=== PATIENT | female | born 1940 | race Caucasian/White ===

== ENCOUNTER 2016-04-25 11:58 | Day surgery (SDC) | payer MEDICARE, OTHER ==
[2016-04-25] MEDS ORDERED: CYCLOPENTOLATE 1% OPHTH DROPS 2 ML OPTH ONE (12:32)
[2016-04-25] MEDS ORDERED: TROPICAMIDE 1% OPHTH 2 ML DROPS OPTH ONE (12:32)
[2016-04-25] MEDS ORDERED: KETOROLAC 0.45% OPHTH DROPS OPTH ONE (12:32)
[2016-04-25] MEDS ORDERED: LACTATED RINGERS 500 ML IV ONE (12:39)
[2016-04-25] MEDS ORDERED: EPINEPHrine 1 MG/ML AMP IO ONE (13:06)
[2016-04-25] MEDS ORDERED: BRIMONIDINE 0.2% OPHTH DROPS 5 ML OPTH ONE (13:06)
[2016-04-25] MEDS ORDERED: PROPARACAINE 0.5% OPHTH DROPS 15 ML OPTH ONE (13:06)
[2016-04-25] MEDS ORDERED: CHONDR SULF/HYALURONATE SYRINGE IO ONE (13:07)
[2016-04-25] MEDS ORDERED: BSS/LIDOCAINE/EPINEPHRINE 1 ML SYRINGE IO ONE (13:07)
[2016-04-25] MEDS ORDERED: levoFLOXacin 0.5% OPHTH DROPS 5 ML OPTH ONE (13:07)
[2016-04-25] MEDS ORDERED: TETRACAINE OPHTH DROPS 2 ML OPTH ONE (13:07)
[2016-04-25] MEDS ORDERED: MIDAZOLAM 2 MG/2 ML VIAL IVP ONE (13:11)
== END 2016-04-25 11:59 | disposition home or self-care (01) ==
PROC: 08RJ3JZ Replacement of Right Lens with Synthetic Substitute, Percutaneous Approach (ICD-10-PCS; principal; 2016-04-25 13:25)
DX: H26.9 Unspecified cataract (principal); R06.83 Snoring; E03.9 Hypothyroidism, unspecified; I48.91 Unspecified atrial fibrillation
CPT/HCPCS: 66984; V2632

== ENCOUNTER 2016-05-09 11:09 | Day surgery (SDC) | payer MEDICARE, OTHER ==
[2016-05-09] MEDS ORDERED: LACTATED RINGERS 500 ML IV ONE (11:27)
[2016-05-09] MEDS ORDERED: MIDAZOLAM 2 MG/2 ML VIAL IVP ONE (12:00)
[2016-05-09] MEDS ORDERED: EPINEPHrine 1 MG/ML AMP IO ONE (12:07)
[2016-05-09] MEDS ORDERED: BRIMONIDINE 0.2% OPHTH DROPS 5 ML OPTH ONE (12:07)
[2016-05-09] MEDS ORDERED: CHONDR SULF/HYALURONATE SYRINGE IO ONE (12:07)
[2016-05-09] MEDS ORDERED: levoFLOXacin 0.5% OPHTH DROPS 5 ML OPTH ONE (12:07)
[2016-05-09] MEDS ORDERED: TETRACAINE OPHTH DROPS 2 ML OPTH ONE (12:07)
[2016-05-09] MEDS ORDERED: PROPARACAINE 0.5% OPHTH DROPS 15 ML OPTH ONE (12:07)
[2016-05-09] MEDS ORDERED: BSS/LIDOCAINE/EPINEPHRINE 1 ML SYRINGE IO ONE (12:08)
== END 2016-05-09 11:10 | disposition home or self-care (01) ==
PROC: 08RK3JZ Replacement of Left Lens with Synthetic Substitute, Percutaneous Approach (ICD-10-PCS; principal; 2016-05-09 12:15)
DX: H25.12 Age-related nuclear cataract, left eye (principal); I48.91 Unspecified atrial fibrillation
CPT/HCPCS: 66984; V2632

== ENCOUNTER 2016-06-13 09:34 | Outpatient (CLI) | payer MEDICARE, OTHER | END 2016-06-13 09:35 | disposition home or self-care (01) | DX: E03.9 Hypothyroidism, unspecified (principal); R53.83 Other fatigue; E55.9 Vitamin D deficiency, unspecified ==

== ENCOUNTER 2017-12-10 10:13 | Outpatient (CLI) | payer MEDICARE, OTHER ==
[2017-12-10 18:47] LABS: THYROID STIMULATING HORMONE 0.54 uIU/mL (0.34-5.60)
[2017-12-10 18:49] LABS: FREE T4 (FREE THYROXINE) 0.45 ng/dL (0.58-1.64)
[2017-12-10 18:52] LABS: TOTAL T3 1.66 ng/mL (0.87-1.78)
[2017-12-11 07:36] LABS: PROGESTERONE 0.6 ng/mL
== END 2017-12-10 10:14 | disposition home or self-care (01) ==
LOC: LAB.F 10:13
PROVIDERS: ATTEND Family Medicine
DX: E03.9 Hypothyroidism, unspecified (principal)
CPT/HCPCS: 36415; 82626; 82670; 84144; 84439; 84443; 84480; 84481; 84482

== ENCOUNTER 2018-10-07 11:36 | Outpatient (CLI) | payer MEDICARE, OTHER ==
--- NOTE | 2018-10-07 14:16 | XRAY Report ---
Reason: WT LOSS, FATIGUE Procedure Date: 10/07/2018 Accession Number: [id number] / [id number] Procedure: XRS - Chest 2 View X-Ray CPT Code: 79090 FULL RESULT: EXAM: CHEST RADIOGRAPHY EXAM DATE: 10/07/2018 11:49 AM. CLINICAL HISTORY: Weight loss, fatigue. COMPARISON: None. TECHNIQUE: 2 views. FINDINGS: Lungs/Pleura: There is mild bronchial wall calcification, a frequent finding in this population. Apparent peripherally dense nodules are felt to represent calcifications of intermediate-sized bronchi en face. No focal opacities evident. No pleural effusion. No pneumothorax. Normal volumes. Mediastinum: Heart and mediastinal contours are nonenlarged, mildly calcified aortic arch. Other: None. IMPRESSION: No pulmonary mass is detected. For workup of occult malignancy, consider CT. [facility]
== END 2018-10-07 11:37 | disposition home or self-care (01) ==
LOC: DI.S 11:36
PROVIDERS: ATTEND Family Medicine
DX: R63.4 Abnormal weight loss (principal); R53.83 Other fatigue; M62.84 Sarcopenia; E03.9 Hypothyroidism, unspecified; I48.91 Unspecified atrial fibrillation; L74.513 Primary focal hyperhidrosis, soles
CPT/HCPCS: 71046

== ENCOUNTER 2018-10-16 12:56 | Outpatient (CLI) | payer MEDICARE, OTHER ==
[2018-10-16 18:03] LABS: ALBUMIN 4.1 g/dL (3.2-5.5); ALBUMIN/GLOBULIN RATIO 1.4 (1.0-2.2); BILIRUBIN,TOTAL 1.1 mg/dL (0.2-1.0); CALCIUM 9.1 mg/dL (8.5-10.3); CREATININE 0.6 mg/dL (0.4-1.0)
== END 2018-10-16 12:57 | disposition home or self-care (01) ==
LOC: LAB.S 12:56
PROVIDERS: ATTEND Family Medicine
DX: E87.5 Hyperkalemia (principal); R53.82 Chronic fatigue, unspecified
CPT/HCPCS: 36415; 80053

== ENCOUNTER 2019-01-20 13:10 | Outpatient (CLI) | payer MEDICARE, OTHER ==
[2019-01-20 18:53] LABS: FREE T4 (FREE THYROXINE) 1.02 ng/dL (0.58-1.64); THYROID STIMULATING HORMONE 1.91 uIU/mL (0.34-5.60); TOTAL T3 0.69 ng/mL (0.87-1.78)
== END 2019-01-20 13:11 | disposition home or self-care (01) ==
LOC: LAB.S 13:10
PROVIDERS: ATTEND Family Medicine
DX: E03.9 Hypothyroidism, unspecified (principal); R53.83 Other fatigue
CPT/HCPCS: 36415; 84439; 84443; 84480; 84481; 84482

== ENCOUNTER 2021-07-22 21:18 | Outpatient (CLI) | payer MEDICARE, OTHER | END 2021-07-22 21:19 | disposition E | LOC: EMS 21:18 ==